=== PATIENT | male | born 1950 | race Asian ===

== ENCOUNTER 2019-05-30 10:32 | Inpatient (IN) | payer OTHER ==
[~2019-05-30] VITALS: Ht 172.7 cm; Wt 75.4 kg
[2019-05-30 11:10] LABS: BASOPHILS % (AUTO) 2.3 % (0.0-2.0); EOSINOPHILS % (AUTO) 9.8 % (1.0-6.0); HEMOGLOBIN 9.7 g/dL (13.5-17.5); LYMPHOCYTES # (AUTO) 1.5 K/uL (1.0-4.8); LYMPHOCYTES % (AUTO) 18.2 % (22.0-44.0); MEAN CORPUSCULAR HEMOGLOBIN 30.4 pg (26.0-34.0); MEAN CORPUSCULAR HGB CONC 34.7 G/dL (31.0-37.0); MEAN CORPUSCULAR VOLUME 88 fL (80-100); MONOCYTES # (AUTO) 0.8 K/uL (0.1-1.0); MONOCYTES % (AUTO) 9.8 % (2.0-9.0); NEUTROPHILS # (AUTO) 4.8 K/uL (1.8-7.7); NEUTROPHILS % (AUTO) 59.9 % (40.0-70.0); PLATELET COUNT (AUTO) 213 K/uL (150-450); RED BLOOD CELL COUNT(AUTO) 3.19 MIL/uL (4.50-5.90); RED CELL DISTRIBUTION WIDTH 13.6 % (11.5-14.5)
[2019-05-30 11:21] LABS: PROTHROMBIN TIME 9.8 SEC (9.4-11.6)
[2019-05-30 11:44] LABS: INFLUENZA TYPE A NEGATIVE FOR TYPE A (NEGATIVE); INFLUENZA TYPE B NEGATIVE FOR TYPE B (NEGATIVE)
[2019-05-30 13:01] LABS: BILIRUBIN,TOTAL 0.4 mg/dL (0.1-1.0); CREATININE 11.7 mg/dL (0.60-1.30); MAGNESIUM 2.1 mg/dL (1.80-2.40); POTASSIUM 4.1 mmol/L (3.5-5.1); TOTAL PROTEIN, SERUM 7.3 g/dL (6.4-8.2)
[2019-05-30] MEDS ORDERED: FUROSEMIDE 40 MG/4 ML VIAL IVP ONE (13:15)
[2019-05-30] MEDS ORDERED: 0.9% SODIUM CHLORIDE 10 ML SYRINGE IVP PRN (14:00)
[2019-05-30] MEDS ORDERED: ACETAMINOPHEN 325 MG TABLET PO PRN ×2 (14:00→16:00)
[2019-05-30] MEDS ORDERED: ONDANSETRON HCL 4 MG/2 ML VIAL IVP PRN ×2 (14:00→16:00)
[2019-05-30] MEDS ORDERED: HydrALAZINE HCL 10 MG TABLET PO PRN (16:00)
[2019-05-30] MEDS ORDERED: AmLODIPine BESYLATE 5 MG TABLET PO ONE (16:00)
[2019-05-30] MEDS ORDERED: MAGNESIUM HYDROXIDE SUSPENSION 30 ML UDCUP PO PRN (16:00)
[2019-05-30] MEDS ORDERED: ZOLPIDEM TARTRATE 5 MG TABLET PO PRN (16:00)
[2019-05-30] MEDS ORDERED: MORPHINE SULFATE 2 MG/ML SYRINGE IVP PRN (16:00)
[2019-05-30] MEDS ORDERED: BISACODYL 10 MG RECTAL RECTAL SUPPOSITORY PR PRN (16:00)
[2019-05-30] MEDS ORDERED: HYDROCODONE/ACETAMINOPHEN 5-325 MG TABLET PO PRN (16:00)
[2019-05-30] MEDS: HEPARIN SODIUM,PORCINE 5,000 UNITS/ML VIAL SQ SCH (17:35)
[2019-05-30 21:21] VITALS: BP 172/78
[2019-05-30] MEDS: FUROSEMIDE 20 MG/2 ML VIAL IVP SCH (22:34)
[2019-05-30] MEDS: DOCUSATE SODIUM 100 MG CAPSULE PO SCH (22:34)
[2019-05-30 23:53] VITALS: BP 145/70
[2019-05-31] MEDS: HEPARIN SODIUM,PORCINE 5,000 UNITS/ML VIAL SQ SCH ×3 (00:57→16:00)
[2019-05-31 04:08] VITALS: BP 145/79
[2019-05-31 07:03] LABS: BASOPHILS % (AUTO) 2.2 % (0.0-2.0); EOSINOPHILS % (AUTO) 12.9 % (1.0-6.0); HEMATOCRIT 25.8 % (41-53); LYMPHOCYTES # (AUTO) 1.5 K/uL (1.0-4.8); LYMPHOCYTES % (AUTO) 21.1 % (22.0-44.0); MEAN CORPUSCULAR HEMOGLOBIN 30.4 pg (26.0-34.0); MEAN CORPUSCULAR HGB CONC 34.8 G/dL (31.0-37.0); MEAN CORPUSCULAR VOLUME 87 fL (80-100); MONOCYTES # (AUTO) 0.7 K/uL (0.1-1.0); MONOCYTES % (AUTO) 9.3 % (2.0-9.0); NEUTROPHILS # (AUTO) 3.9 K/uL (1.8-7.7); NEUTROPHILS % (AUTO) 54.5 % (40.0-70.0); PLATELET COUNT (AUTO) 186 K/uL (150-450); RED BLOOD CELL COUNT(AUTO) 2.95 MIL/uL (4.50-5.90); RED CELL DISTRIBUTION WIDTH 13.9 % (11.5-14.5)
[2019-05-31 07:07] LABS: CREATININE 12.19 mg/dL (0.60-1.30); POTASSIUM 3.8 mmol/L (3.5-5.1)
[2019-05-31 07:50] VITALS: BP 144/71
[2019-05-31] MEDS: FUROSEMIDE 20 MG/2 ML VIAL IVP SCH (08:15)
[2019-05-31] MEDS: DOCUSATE SODIUM 100 MG CAPSULE PO SCH (08:16)
[2019-05-31] MEDS ORDERED: AmLODIPine BESYLATE 10 MG TABLET PO SCH (09:00)
[2019-05-31] MEDS ORDERED: PANTOPRAZOLE SODIUM 40 MG DR TABLET PO SCH (09:00)
[2019-05-31 11:27] VITALS: BP 150/79
[2019-05-31] MEDS ORDERED: SODIUM BICARBONATE 650 MG TABLET PO SCH (14:30)
[2019-05-31 15:25] VITALS: BP 125/80
[2019-05-31] MEDS ORDERED: EPOETIN ALFA 10,000 UNITS/ML VIAL SQ SCH (16:00)
[2019-05-31] MEDS ORDERED: SODI650T PO (16:22)
[2019-05-31] MEDS ORDERED: AMLO10TA55 PO (16:22)
[2019-05-31] MEDS ORDERED: FURO-152 PO (16:23)
== END 2019-05-31 17:20 | disposition home or self-care (01) | DRG 291 ==
LOC: EMS 10:33 → 5N 20:28
PROVIDERS: ADMIT Internal Medicine; ATTEND Internal Medicine
DX: I13.2 Hypertensive heart and chronic kidney disease with heart failure and with stage 5 chronic kidney disease, or end stage renal disease (principal); N18.6 End stage renal disease; E87.2 Acidosis; E11.22 Type 2 diabetes mellitus with diabetic chronic kidney disease; D64.9 Anemia, unspecified; I50.9 Heart failure, unspecified; E78.5 Hyperlipidemia, unspecified; I25.10 Atherosclerotic heart disease of native coronary artery without angina pectoris; Z95.5 Presence of coronary angioplasty implant and graft; Z91.14 Patient's other noncompliance with medication regimen; Z99.2 Dependence on renal dialysis
CPT/HCPCS: 83735; 87804; 93005; J0885; J1644; J1940

== ENCOUNTER 2019-06-27 09:48 | Inpatient (IN) | payer OTHER ==
[~2019-06-27] VITALS: Ht 170.2 cm; Wt 78.0 kg
[~2019-06-27 09:48] MED LIST: AMLO10TA55 PO; FURO-152 PO; SODI650T PO
[2019-06-27 10:35] LABS: GLUCOSE,POINT OF CARE 153 MG/DL (70-110)
[2019-06-27 10:44] LABS: BASOPHILS % (AUTO) 1.3 % (0.0-2.0); EOSINOPHILS % (AUTO) 7.7 % (1.0-6.0); HEMATOCRIT 27.8 % (41-53); HEMOGLOBIN 9.5 g/dL (13.5-17.5); LYMPHOCYTES # (AUTO) 1.3 K/uL (1.0-4.8); LYMPHOCYTES % (AUTO) 15.4 % (22.0-44.0); MEAN CORPUSCULAR HGB CONC 34.2 G/dL (31.0-37.0); MEAN CORPUSCULAR VOLUME 88 fL (80-100); MONOCYTES # (AUTO) 0.8 K/uL (0.1-1.0); MONOCYTES % (AUTO) 9.4 % (2.0-9.0); NEUTROPHILS # (AUTO) 5.8 K/uL (1.8-7.7); NEUTROPHILS % (AUTO) 66.2 % (40.0-70.0); PLATELET COUNT (AUTO) 211 K/uL (150-450); RED BLOOD CELL COUNT(AUTO) 3.17 MIL/uL (4.50-5.90); RED CELL DISTRIBUTION WIDTH 14.7 % (11.5-14.5)
[2019-06-27 10:54] LABS: CREATININE 14.66 mg/dL (0.60-1.30); POTASSIUM 3.8 mmol/L (3.5-5.1)
[2019-06-27 11:00] LABS: ALBUMIN 2.7 g/dL (3.4-5.0); BILIRUBIN,TOTAL 0.3 mg/dL (0.1-1.0); TOTAL PROTEIN, SERUM 6.7 g/dL (6.4-8.2)
[2019-06-27] MEDS ORDERED: ACETAMINOPHEN 325 MG TABLET PO PRN ×2 (11:45→21:30)
[2019-06-27] MEDS ORDERED: ASPIRIN 81 MG CHEWABLE TABLET PO ONE (11:45)
[2019-06-27] MEDS ORDERED: ONDANSETRON HCL 4 MG/2 ML VIAL IVP PRN ×2 (11:45→21:30)
[2019-06-27] MEDS ORDERED: CALCIUM GLUCONATE 100 MG/ML 10 ML IVP ONE (11:45)
[2019-06-27] MEDS ORDERED: 0.9% SODIUM CHLORIDE 10 ML SYRINGE IVP PRN ×2 (11:45→21:30)
[2019-06-27 12:21] LABS: CALCIUM, TOTAL 5.7 mg/dL (8.8-10.5)
[2019-06-27 12:22] LABS: MAGNESIUM 2.2 mg/dL (1.80-2.40); PHOSPHORUS 8.9 mg/dL (2.5-4.9)
[2019-06-27] MEDS ORDERED: METO-408 PO (13:42)
[2019-06-27] MEDS ORDERED: HYDR-4061 PO (13:44)
[2019-06-27] MEDS ORDERED: HYDR-4173 PO (13:46)
[2019-06-27] MEDS ORDERED: CALC667C PO (13:46)
[2019-06-27] MEDS ORDERED: METOPROLOL TARTRATE 50 MG TABLET PO SCH (21:00)
[2019-06-27] MEDS: HydrALAZINE HCL 25 MG TABLET PO SCH (21:13)
[2019-06-27] MEDS ORDERED: HYDROCODONE/ACETAMINOPHEN 5-325 MG TABLET PO PRN (21:30)
[2019-06-27] MEDS: DOCUSATE SODIUM 100 MG CAPSULE PO SCH (21:30)
[2019-06-27] MEDS: METOPROLOL SUCCINATE 25 MG ER TABLET PO SCH (21:30)
[2019-06-27] MEDS ORDERED: ZOLPIDEM TARTRATE 5 MG TABLET PO PRN (21:30)
[2019-06-27 22:46] VITALS: BP 163/79
[2019-06-27] MEDS: BUMETANIDE 0.25 MG/ML 4 ML VIAL IVP SCH (23:42)
[2019-06-28] MEDS ORDERED: INFLUENZA VIRUS VACCINE QVS 2019-20 (3YR+)/PF 60 MCG/0.5 ML SYRINGE IM ONE (00:15)
[2019-06-28 04:21] VITALS: BP 163/78
[2019-06-28] MEDS: BUMETANIDE 0.25 MG/ML 4 ML VIAL IVP SCH ×3 (05:33→17:42)
[2019-06-28 06:51] LABS: BASOPHILS % (AUTO) 1.5 % (0.0-2.0); EOSINOPHILS % (AUTO) 10.6 % (1.0-6.0); HEMATOCRIT 27.1 % (41-53); HEMOGLOBIN 9.3 g/dL (13.5-17.5); LYMPHOCYTES # (AUTO) 1.3 K/uL (1.0-4.8); LYMPHOCYTES % (AUTO) 16.3 % (22.0-44.0); MEAN CORPUSCULAR HEMOGLOBIN 30.4 pg (26.0-34.0); MEAN CORPUSCULAR HGB CONC 34.5 G/dL (31.0-37.0); MEAN CORPUSCULAR VOLUME 88 fL (80-100); MONOCYTES # (AUTO) 0.7 K/uL (0.1-1.0); MONOCYTES % (AUTO) 9.1 % (2.0-9.0); NEUTROPHILS % (AUTO) 62.5 % (40.0-70.0); PLATELET COUNT (AUTO) 204 K/uL (150-450); RED BLOOD CELL COUNT(AUTO) 3.07 MIL/uL (4.50-5.90); RED CELL DISTRIBUTION WIDTH 14.6 % (11.5-14.5)
[2019-06-28 07:07] LABS: CREATININE 15.07 mg/dL (0.60-1.30); MAGNESIUM 2.3 mg/dL (1.80-2.40); POTASSIUM 3.8 mmol/L (3.5-5.1)
[2019-06-28 07:11] LABS: % IRON SATURATION 29.8 % (30-44)
[2019-06-28 07:37] VITALS: BP 156/77
[2019-06-28 07:41] LABS: CALCIUM, TOTAL 5.8 mg/dL (8.8-10.5)
[2019-06-28] MEDS: CALCIUM ACETATE 667 MG CAPSULE PO SCH ×3 (07:59→20:38)
[2019-06-28] MEDS ORDERED: CALCIUM GLUCONATE 100 MG/ML 10 ML IVP ONE (08:00)
[2019-06-28 08:21] LABS: PROTHROMBIN TIME 10.4 SEC (9.4-11.6)
[2019-06-28] MEDS: HydrALAZINE HCL 25 MG TABLET PO SCH ×3 (08:32→20:38)
[2019-06-28] MEDS: FUROSEMIDE 20 MG TABLET PO SCH (08:33)
[2019-06-28] MEDS: DOCUSATE SODIUM 100 MG CAPSULE PO SCH ×2 (08:33→20:38)
[2019-06-28 08:49] LABS: PHOSPHORUS 9.3 mg/dL (2.5-4.9)
[2019-06-28] MEDS ORDERED: FUROSEMIDE 20 MG TABLET PO SCH (09:00)
[2019-06-28] MEDS ORDERED: HydrALAZINE HCL 25 MG TABLET PO SCH (09:00)
[2019-06-28] MEDS ORDERED: AmLODIPine BESYLATE 10 MG TABLET PO SCH (09:00)
[2019-06-28] MEDS: METOPROLOL SUCCINATE 25 MG ER TABLET PO SCH ×2 (09:00→20:38)
[2019-06-28] MEDS ORDERED: LIDOCAINE 1%/EPI 1:200,000/PF 10 ML VIAL ONE (11:12)
[2019-06-28] MEDS ORDERED: HEPARIN SODIUM 1000 UNITS/NS 0 ML ONE (11:13)
[2019-06-28] MEDS ORDERED: HEPARIN SODIUM,PORCINE 1,000 UNITS/ML 10 ML VIAL ONE (11:13)
[2019-06-28 11:19] VITALS: BP 161/75
[2019-06-28] MEDS ORDERED: SODIUM CHLORIDE 0.9% 1,000 ML ONE (11:38)
[2019-06-28] MEDS: PANTOPRAZOLE SODIUM 40 MG DR TABLET PO SCH (15:30)
[2019-06-28] MEDS: AmLODIPine BESYLATE 5 MG TABLET PO SCH (15:30)
[2019-06-28] MEDS: SODIUM BICARBONATE 650 MG TABLET PO SCH (15:30)
[2019-06-28] MEDS: VITAMIN B COMP/VIT C/FOLIC ACID CAPSULE PO SCH (15:30)
[2019-06-28] MEDS: EPOETIN ALFA 10,000 UNITS/ML VIAL SQ SCH (15:31)
[2019-06-28 15:46] VITALS: BP 165/80
[2019-06-28 19:46] VITALS: BP 139/68
[2019-06-28 23:55] VITALS: BP 120/59
[2019-06-29] MEDS: BUMETANIDE 0.25 MG/ML 4 ML VIAL IVP SCH ×2 (00:42→06:00)
[2019-06-29 04:31] VITALS: BP 136/63
[2019-06-29 08:05] LABS: CALCIUM, TOTAL 6.9 mg/dL (8.8-10.5); CREATININE 11.04 mg/dL (0.60-1.30); MAGNESIUM 1.9 mg/dL (1.80-2.40); PHOSPHORUS 6.1 mg/dL (2.5-4.9); POTASSIUM 3.1 mmol/L (3.5-5.1)
[2019-06-29] MEDS: DOCUSATE SODIUM 100 MG CAPSULE PO SCH ×2 (09:00→19:59)
[2019-06-29] MEDS: FUROSEMIDE 20 MG TABLET PO SCH (09:00)
[2019-06-29 10:34] VITALS: BP 148/73
[2019-06-29] MEDS: PANTOPRAZOLE SODIUM 40 MG DR TABLET PO SCH (10:38)
[2019-06-29] MEDS: AmLODIPine BESYLATE 5 MG TABLET PO SCH (10:38)
[2019-06-29] MEDS: SODIUM BICARBONATE 650 MG TABLET PO SCH (10:38)
[2019-06-29] MEDS: CALCIUM ACETATE 667 MG CAPSULE PO SCH ×3 (10:38→19:59)
[2019-06-29] MEDS: VITAMIN B COMP/VIT C/FOLIC ACID CAPSULE PO SCH (10:38)
[2019-06-29] MEDS: METOPROLOL SUCCINATE 25 MG ER TABLET PO SCH ×2 (10:38→19:59)
[2019-06-29] MEDS: HydrALAZINE HCL 25 MG TABLET PO SCH ×3 (10:38→19:59)
[2019-06-29 12:20] VITALS: BP 144/72
[2019-06-29 16:15] VITALS: BP 128/64
[2019-06-29] MEDS ORDERED: LIDOCAINE/PF 1% 2 ML VIAL INJ ONE (16:51)
[2019-06-29 20:05] VITALS: BP 138/53
[2019-06-30 01:13] VITALS: BP 137/62
[2019-06-30 04:22] VITALS: BP 130/71
[2019-06-30 07:07] VITALS: BP 141/67
[2019-06-30] MEDS: PANTOPRAZOLE SODIUM 40 MG DR TABLET PO SCH (08:04)
[2019-06-30] MEDS: DOCUSATE SODIUM 100 MG CAPSULE PO SCH ×2 (08:04→22:45)
[2019-06-30] MEDS: HydrALAZINE HCL 25 MG TABLET PO SCH (08:04)
[2019-06-30] MEDS: CALCIUM ACETATE 667 MG CAPSULE PO SCH ×3 (08:04→22:45)
[2019-06-30] MEDS: METOPROLOL SUCCINATE 25 MG ER TABLET PO SCH ×2 (08:04→22:45)
[2019-06-30] MEDS: VITAMIN B COMP/VIT C/FOLIC ACID CAPSULE PO SCH (08:04)
[2019-06-30] MEDS: AmLODIPine BESYLATE 5 MG TABLET PO SCH (08:04)
[2019-06-30 11:21] VITALS: BP 127/65
[2019-06-30 11:26] LABS: CALCIUM, TOTAL 7.4 mg/dL (8.8-10.5); CREATININE 9.98 mg/dL (0.60-1.30); MAGNESIUM 1.9 mg/dL (1.80-2.40); PHOSPHORUS 4.9 mg/dL (2.5-4.9); POTASSIUM 3.3 mmol/L (3.5-5.1)
[2019-06-30] MEDS ORDERED: ENALAPRIL MALEATE 2.5 MG TABLET PO SCH ×2 (12:00)
[2019-06-30] MEDS: ENALAPRIL MALEATE 5 MG TABLET PO SCH (14:08)
[2019-06-30] MEDS ORDERED: LIDOCAINE/PF 1% 2 ML VIAL ONE (15:29)
[2019-06-30 15:44] VITALS: BP 143/68
[2019-06-30 20:48] VITALS: BP 142/63
[2019-06-30] MEDS ORDERED: POTASSIUM CHLORIDE 20 MEQ ER TABLET PO ONE (23:30)
[2019-07-01] VITALS (7 sets, daily range): BP systolic 130–152; BP diastolic 61–80
[2019-07-01] MEDS: EPOETIN ALFA 10,000 UNITS/ML VIAL SQ SCH (09:18)
[2019-07-01] MEDS: CALCIUM ACETATE 667 MG CAPSULE PO SCH ×3 (13:11→20:33)
[2019-07-01] MEDS: METOPROLOL SUCCINATE 25 MG ER TABLET PO SCH ×2 (13:11→20:33)
[2019-07-01] MEDS: DOCUSATE SODIUM 100 MG CAPSULE PO SCH ×2 (13:11→20:33)
[2019-07-01] MEDS: PANTOPRAZOLE SODIUM 40 MG DR TABLET PO SCH (13:11)
[2019-07-01] MEDS: VITAMIN B COMP/VIT C/FOLIC ACID CAPSULE PO SCH (13:11)
[2019-07-01] MEDS: AmLODIPine BESYLATE 5 MG TABLET PO SCH (13:11)
[2019-07-01] MEDS: ENALAPRIL MALEATE 5 MG TABLET PO SCH (16:33)
[2019-07-01] MEDS ORDERED: LIDOCAINE/PF 1% 2 ML VIAL ONE (17:36)
[2019-07-02 00:12] VITALS: BP 136/64
[2019-07-02 05:22] VITALS: BP 148/54
[2019-07-02 07:41] VITALS: BP 123/67
[2019-07-02] MEDS: PANTOPRAZOLE SODIUM 40 MG DR TABLET PO SCH (08:23)
[2019-07-02] MEDS: VITAMIN B COMP/VIT C/FOLIC ACID CAPSULE PO SCH (08:23)
[2019-07-02] MEDS: CALCIUM ACETATE 667 MG CAPSULE PO SCH ×2 (08:23→15:53)
[2019-07-02] MEDS: DOCUSATE SODIUM 100 MG CAPSULE PO SCH (08:24)
[2019-07-02] MEDS: AmLODIPine BESYLATE 5 MG TABLET PO SCH (08:24)
[2019-07-02] MEDS: METOPROLOL SUCCINATE 25 MG ER TABLET PO SCH (08:24)
[2019-07-02 11:31] VITALS: BP 132/61
[2019-07-02 15:44] VITALS: BP 134/71
[2019-07-02] MEDS: ENALAPRIL MALEATE 5 MG TABLET PO SCH (15:53)
== END 2019-07-02 18:15 | disposition home or self-care (01) | DRG 291 ==
LOC: EMS 09:50 → 5S 21:02
PROVIDERS: ADMIT Internal Medicine; ATTEND Internal Medicine
PROC: 5A1D70Z Performance of Urinary Filtration, Intermittent, Less than 6 Hours Per Day (ICD-10-PCS; principal; 2019-06-27)
PROC: 5A1D70Z Performance of Urinary Filtration, Intermittent, Less than 6 Hours Per Day (ICD-10-PCS; 2019-06-28)
PROC: 5A1D70Z Performance of Urinary Filtration, Intermittent, Less than 6 Hours Per Day (ICD-10-PCS; 2019-06-29)
PROC: 5A1D70Z Performance of Urinary Filtration, Intermittent, Less than 6 Hours Per Day (ICD-10-PCS; 2019-07-01)
DX: I13.2 Hypertensive heart and chronic kidney disease with heart failure and with stage 5 chronic kidney disease, or end stage renal disease (principal); N18.6 End stage renal disease; E87.2 Acidosis; I50.9 Heart failure, unspecified; E11.22 Type 2 diabetes mellitus with diabetic chronic kidney disease; Z99.2 Dependence on renal dialysis; E83.51 Hypocalcemia; I25.10 Atherosclerotic heart disease of native coronary artery without angina pectoris; Z95.5 Presence of coronary angioplasty implant and graft; E11.51 Type 2 diabetes mellitus with diabetic peripheral angiopathy without gangrene; E78.5 Hyperlipidemia, unspecified; Z91.19 Patient's noncompliance with other medical treatment and regimen; Z91.14 Patient's other noncompliance with medication regimen; E83.39 Other disorders of phosphorus metabolism; E87.6 Hypokalemia; D63.8 Anemia in other chronic diseases classified elsewhere; Z79.899 Other long term (current) drug therapy
CPT/HCPCS: 83036; 83540; 83550; 83735; 83970; 84100; 84132; 87340; 93005; J0610; J0885; J1644; J2405; J3490; J7030

== ENCOUNTER 2019-07-03 10:07 | Observation (INO) | payer OTHER ==
[2019-07-03] MEDS ORDERED: LIDOCAINE/PF 1% 2 ML VIAL INJ ONE (12:00)
== END 2019-07-03 15:00 | disposition home or self-care (01) ==
LOC: 5N 10:07
PROVIDERS: ADMIT Internal Medicine Nephrology; ATTEND Internal Medicine Nephrology
DX: E11.22 Type 2 diabetes mellitus with diabetic chronic kidney disease (principal); I13.2 Hypertensive heart and chronic kidney disease with heart failure and with stage 5 chronic kidney disease, or end stage renal disease; N18.6 End stage renal disease; I25.10 Atherosclerotic heart disease of native coronary artery without angina pectoris; D63.8 Anemia in other chronic diseases classified elsewhere; E83.51 Hypocalcemia; Z99.2 Dependence on renal dialysis; Z79.899 Other long term (current) drug therapy
CPT/HCPCS: G0378; J3490

== ENCOUNTER → 2019-07-03 | Emergency (ER) | payer OTHER ==
[~2019-07-03] VITALS: Ht 165.1 cm; Wt 75.0 kg
[~2019-07-03] MED LIST changes: -AMLO10TA55 PO; +CALC667C PO; -FURO-152 PO; +HYDR-4173 PO; +METO-408 PO; -SODI650T PO
[2019-07-03 09:16] VITALS: BP 125/62
[2019-07-03 09:30] LABS: GLUCOSE,POINT OF CARE 176 MG/DL (70-110)
== END | disposition home or self-care (01) ==
LOC: EMS 09:12
DX: R05 Cough (principal); Z53.21 Procedure and treatment not carried out due to patient leaving prior to being seen by health care provider